=== PATIENT | female | born 1990 | race Caucasian/White ===

== ENCOUNTER 2017-07-25 11:30 | Emergency (ER) | payer BC, OTHER ==
[~2017-07-25] VITALS: Ht 154.9 cm; Wt 69.4 kg
[~2017-07-25 11:30] MED LIST: CIPRO250 MG PO; NORCO 5-325 TA1 EACH PO
[2017-07-25] MEDS ORDERED: ADVIL200 M1 PO (11:49)
[2017-07-25] MEDS ORDERED: ONDANSETRON ODT4 MG SL (15:31)
[2017-07-25] MEDS ORDERED: AUGMENTIN 875-1 EACH PO (15:31)
[2017-07-25] MEDS ORDERED: PYRIDIUM200 MG PO (15:31)
[2017-07-25] MEDS ORDERED: PERCOCET 5-3251 EACH PO (15:32)
== END 2017-07-25 15:40 | disposition home or self-care (01) ==
LOC: ED 11:30
DX: N12 Tubulo-interstitial nephritis, not specified as acute or chronic (principal); D72.829 Elevated white blood cell count, unspecified; F17.200 Nicotine dependence, unspecified, uncomplicated; Z87.442 Personal history of urinary calculi
CPT/HCPCS: 74176; 80053; 81001; 84703; 85025; 87077; 87088; 87186; 96365; 96366; 96375; 99284; J0295; J1885; J2405; J7120

== ENCOUNTER 2022-08-15 09:58 | Emergency (ER) | payer OTHER ==
[~2022-08-15] VITALS: Ht 157.5 cm; Wt 61.1 kg
[~2022-08-15 09:58] MED LIST changes: +ADVIL200 M1 PO; +AUGMENTIN 875-1 EACH PO; +FLOMAX0.4 MG PO; +IBUPROFEN600 MG PO; +ONDANSETRON ODT4 MG SL; +PERCOCET 5-3251 EACH PO; +PYRIDIUM200 MG PO
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
[2022-08-15] MEDS ORDERED: METHOCARBAMOL750 MG PO (10:36)
[2022-08-15 13:16] VITALS: BP 124/89
== END 2022-08-15 12:06 | disposition home or self-care (01) ==
LOC: ED 09:58
DX: S16.1XXA Strain of muscle, fascia and tendon at neck level, initial encounter (principal); V49.60XA Unspecified car occupant injured in collision with unspecified motor vehicles in traffic accident, initial encounter; F17.200 Nicotine dependence, unspecified, uncomplicated
CPT/HCPCS: 71045; 72040; 84703; 99284-25; 99406